=== PATIENT | female | born 1995 | race Caucasian/White ===

== ENCOUNTER 2017-02-24 19:24 | Emergency (ER) | payer OTHER ==
[2017-02-24 19:34] VITALS: TEMP 98.1
[2017-02-24] MEDS ORDERED: ONDANSETRON DISINTEGRATING 4 MG TAB PO ONE (19:55)
[2017-02-24] MEDS ORDERED: IBUPROFEN 600 MG TAB PO ONE (19:55)
--- NOTE | 2017-02-24 19:55 | EDPHY ---
H & P Time Seen by Provider: 02/24/17 19:46 HPI/ROS: CHIEF COMPLAINT: Pleuritic chest pain HISTORY OF PRESENT ILLNESS: This patient is a 21 year old female arriving today with her mother complaining of pleuritic chest pain onset yesterday at 2100 just after a coughing fit. She states she has had a cold for the last two weeks with associated sore throat, cough, and congestion. Last night, she had a coughing attack describes as "an asthma attack that wouldn't stop" before developing acute pleuritic chest pain. Her chest pain has persisted to the present. She describes it as radiating inferiorly to her upper abdomen and superiorly to her neck with associated nausea but no vomiting. She continues to report a mild sore throat and nasal congestion. She has no additional complaints. She denies fever, chills, or weakness. Medical history includes exercise-induced asthma. REVIEW OF SYSTEMS: Constitutional: No fever, no chills Eyes: No visual changes ENT: +sore throat Respiratory: +cough, +shortness of breath Cardiac:+chest pain Gastrointestinal: + nausea, no vomiting, + epigastric pain Genitourinary: No hematuria, no dysuria Musculoskeletal: No leg pain or swelling Skin: No rash Neurological: No headache, no numbness, no weakness Psychiatric: No depression Past Medical/Surgical History: Exercise-induced asthma. Social History: Arriving with mother. Student. Smoking Status: Never smoked Physical Exam: General Appearance: Alert, no distress Eyes: Pupils equal and round, no conjunctival pallor or injection ENT, Mouth: Pharyngeal erythema. Mucous membranes moist Neck: Normal inspection Respiratory: Lungs are clear to auscultation, apparent pain when breathing Cardiovascular: Regular rate and rhythm Gastrointestinal: Abdomen is soft with epigastric tenderness . Neurological: A&O, nonfocal, normal gait Skin: Warm and dry, no rash Extremities: Nontender, no pedal edema Psychiatric: Mood and affect normal Constitutional: Initial Vital Signs Temperature (C) 36.7 C 02/24/17 19:31 Heart Rate 90 02/24/17 19:31 Respiratory Rate 20 02/24/17 19:31 Blood Pressure 116/74 02/24/17 19:31 O2 Sat (%) 97 02/24/17 19:31 O2 Delivery Mode Room Air Allergies/Adverse Reactions: No Known Allergies Allergy (Unverified 02/24/17 19:31) Home Medications: Medication Instructions Recorded Adderall 10 MG (*) 02/24/17 Medical Decision Making - Diagnostics Imaging Results: Imaging Impressions Chest X-Ray 02/24/17 19:56 Impression: 1. Pneumomediastinum. 2. No focal pneumonia. Findings and recommendations discussed with Emergency Department physician, Nena Raza M.D., at 2014 hours, on February 24, 2017. Final report concurs with initial preliminary interpretation. Imaging: Discussed imaging studies w/ inbound call center representative Radiologist, I viewed and interpreted images myself ED Course/Re-evaluation: This patient is a 21 year old female with history of asthma presenting with chest pain and difficulty breathing onset yesterday evening secondary to upper respiratory infection ongoing for the past two weeks. Plan to order chest x-ray to rule out pneumonia or other acute process. Plan to administer 600mg PO Ibuprofen and 4mg PO Zofran to treat symptoms. She will be given a take-home Albuterol inhaler as well for shortness of breath. 2012: Chest x-ray reveals pneumomediastinum per Dr. Harrell. I discussed imaging results with the patient. Pneumonia mediastinum secondary to coughing fit. She will be given an albuterol inhaler for any subsequent coughing fits. She has been given instructions to follow-up with a fine arts chair. We discussed strict return precautions. She expresses understanding and agreement to this treatment plan and will be discharged home in good condition. Differential Diagnosis: Differential diagnosis includes does not limited to pneumonia, pneumothorax, bronchospasm. - Data Points Medications Given: Discontinued Medications Albuterol Sulfate (Proventil Inh Prepack) 1 mdi TAKEHOME EDNOW ONE Stop: 02/24/17 19:57 Last Admin: 02/24/17 20:37 Dose: 1 mdi Ibuprofen (Motrin) 600 mg PO EDNOW ONE Stop: 02/24/17 19:56 Last Admin: 02/24/17 20:05 Dose: 600 mg Ondansetron HCl (Zofran Odt) 4 mg PO EDNOW ONE Stop: 02/24/17 19:56 Last Admin: 02/24/17 20:04 Dose: 4 mg Departure - Departure Disposition: Home, Routine, Self-Care Clinical Impression: Pneumomediastinum Condition: Good Instructions: Albuterol (By breathing), Albuterol (By mouth), Upper Respiratory Infection (ED) Additional Instructions: 1. Take 2 puffs of Albuterol as needed three times daily for similar episodes of difficulty breathing. 2. Take 600mg Ibuprofen or 650mg Tylenol as needed for pain. 3. Your x-ray showed a pneumomediastinum. Follow-up with a fine arts chair as soon as possible for further evaluation. We have referred you to Dr. Reynolds. 4. Return to the ED for shortness of breath, worsening chest pain, or any other serious concerns. Referrals: NONE *PRIMARY CARE P,. [Primary Care Provider] - As per Instructions Marshall Reynolds MD [Medical Doctor] - As per Instructions Stand Alone Forms: School Excuse Report Scribed for: Nena Raza Report Scribed by: Amada Miller Date of Report: 02/24/17 Time of Report: 19:48 Physician Review and Approval Statement: 02/24/17 19:48 Portions of this note were transcribed by a medical office technician. I personally performed a history, physical exam, medical decision making, and confirmed accuracy of information the transcribed note.
[2017-02-24] MEDS ORDERED: ALBUTEROL INH PREPACK MDI TAKEHOME ONE (19:56)
[2017-02-24 20:47] VITALS: BP 112/77; PULSE 91; RESP 18; O2SAT 96
== END 2017-02-24 20:46 | disposition home or self-care (01) ==
DX: J98.2 Interstitial emphysema (principal); J45.909 Unspecified asthma, uncomplicated

== ENCOUNTER 2017-11-30 19:01 | Emergency (ER) | payer OTHER ==
[2017-11-30 19:23] VITALS: BP 110/69; PULSE 70; RESP 20; TEMP 98.2; O2SAT 99
--- NOTE | 2017-11-30 19:35 | EDPHY ---
H & P Time Seen by Provider: 11/30/17 19:27 HPI/ROS: CHIEF COMPLAINT: Skin lesion HISTORY OF PRESENT ILLNESS: Patient bruises frequently, she noticed this area on her right forearm that was bruised with central area of normal skin. Not itchy or painful. Her family encouraged her to come to the ER get it checked out. Friends mention possibility of a spider bite. REVIEW OF SYSTEMS: No fever or chills. No bleeding. No known trauma. PAST MEDICAL HISTORY: Negative Social history: [employer] student General Appearance: Alert and conversant, cooperative. The patient has a 3 cm area of ecchymosis with 1 cm area central normal skin on the volar right forearm midway between the wrist and the elbow. Not indurated or raised. Not urticaria. Not tender to palpation with no blister or eschar. No fluctuance. No lymphangitis. Emergency Department course/MDM: Patient has a area of ecchymosis on the right volar forearm which clinically is a bruise. CBC checked because of her history of easy bruising. Smoking Status: Never smoked Constitutional: Initial Vital Signs Temperature (C) 36.8 C 11/30/17 19:20 Heart Rate 70 11/30/17 19:20 Respiratory Rate 20 11/30/17 19:20 Blood Pressure 110/69 11/30/17 19:20 O2 Sat (%) 99 11/30/17 19:20 Allergies/Adverse Reactions: Sulfa (Sulfonamide Antibiotics) Allergy (Verified 11/30/17 19:20) Home Medications: Medication Instructions Recorded Adderall 10 MG (*) 02/24/17 MDM/Departure - Depart Disposition: Home, Routine, Self-Care Clinical Impression: Bruise right forearm Condition: Good Instructions: Contusion in Adults (ED) Additional Instructions: CBC normal, normal platelet count of 201. Referrals: [facility],. [Clinic] - As per Instructions
[2017-11-30 19:48] LABS: PLATELET COUNT 201 10^3/uL (150-400)
== END 2017-11-30 19:55 | disposition home or self-care (01) ==
DX: S50.11XA Contusion of right forearm, initial encounter (principal); X58.XXXA Exposure to other specified factors, initial encounter

== ENCOUNTER 2019-02-07 21:12 | Emergency (ER) | payer OTHER ==
[2019-02-07] MEDS ORDERED: LET GEL TOPICAL 1 EA SYR TP ONE ×2 (21:58→22:03)
[2019-02-07] MEDS ORDERED: CEPHALEXIN 500 MG CAP PO ONE (21:59)
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
[2019-02-07 23:05] VITALS: BP 104/77
== END 2019-02-07 23:04 | disposition home or self-care (01) ==
DX: L03.90 Cellulitis, unspecified (principal)